=== PATIENT | male | born 1955 | race Caucasian/White ===

== ENCOUNTER 2017-01-10 10:45 | Emergency (ER) | payer OTHER ==
[2017-01-10 10:50] VITALS: BP 139/100; PULSE 72; TEMP 97.9; BMI 29.0
[2017-01-10] MEDS ORDERED: ALBUTEROL SO4 2.5/IPRATROPIUM 0.5 INH SOL 3 ML VIAL.NEB. NEB ONE ×3 (11:10→11:47)
[2017-01-10] MEDS ORDERED: predniSONE 20 MG TABLET (UD) PO ONE (11:34)
--- NOTE | 2017-01-10 11:41 | PDOC ---
History of Present Illness - General Chief Complaint: Cold Symptoms Stated Complaint: COUGH, SOB Time Seen by Provider: 01/10/17 10:57 - History of Present Illness Initial Comments: 01/10/17 11:44 61-year-old male with a past medical history of GERD, chronic sinusitis, environmental ALLERGIES, and reactive airway disease when he gets a URI Patient has had a recent sinusitis, and was on antibiotics for 10 days, which she stopped 2 weeks ago He is again complaining of sinus pain, more on the right than the left, and some green nasal drainage He denies any fever, but admits to some chills He is also had a few days of nonproductive cough and some wheezing, and feeling "tight" He is occasionally short of breath with this He denies any earache He denies any midsternal chest pain He states that when he gets like this she often needs a nebulizer and some prednisone He denies any other complaints at this time, and the remainder of the review of systems is negative Past History - Past Medical History Allergies/Adverse Reactions: Allergies Allergy/AdvReac Type Severity Reaction Status Date / Time Penicillins Allergy Verified 01/10/17 10:46 Home Medications: Ambulatory Orders Omeprazole Magnesium [Prilosec (OTC)] 20 mg PO DAILY 01/22/16 Clindamycin [Cleocin -] 300 mg PO TID #21 capsule 01/10/17 Prednisone [Deltasone -] 20 mg PO DAILY #15 tablet 01/10/17 Other medical history: SINUS - Psycho/Social/Smoking Cessation Hx Anxiety: No Suicidal Ideation: No Smoking History: Former smoker Have you smoked in the past 12 months: No If you are a former smoker, when did you quit?: 15YRS Information on smoking cessation initiated: No Hx Alcohol Use: Yes Drug/Substance Use Hx: No Substance Use Type: Alcohol Review of Systems - Review of Systems Able to Perform ROS?: Yes Comments:: 01/10/17 11:46 Review of systems is as per history of present illness and otherwise negative *Physical Exam - Vital Signs Last Vital Signs Temp Pulse Resp BP Pulse Ox 97.9 F 72 18 139/100 100 01/10/17 10:45 01/10/17 10:45 01/10/17 10:45 01/10/17 10:45 01/10/17 10:45 - Physical Exam Comments: 01/10/17 11:46 Physical exam Last Vital Signs Temp Pulse Resp BP Pulse Ox 97.9 F 72 18 139/100 100 01/10/17 10:45 01/10/17 10:45 01/10/17 10:45 01/10/17 10:45 01/10/17 10:45 GENERAL: The patient is awake, alert, and fully oriented, and in no apparent distress. HEAD: Normal with no signs of trauma. EYES: Sclera anicteric, conjunctiva normal ENT: TMs normal, the throat is erythematous without exudate Moist mucous membranes. There is diffuse mild sinus tenderness to palpation, mostly in the right maxillary sinus NECK: Normal range of motion, supple without lymphadenopathy, JVD, or masses. LUNGS: Breath sounds equal, clear with a prolonged expiratory phase, but no wheezing HEART: Regular rate and rhythm, normal S1 and S2 without murmur, rub or gallop. ABDOMEN: Soft, nontender, normoactive bowel sounds. No guarding, no rebound. No masses appreciated. EXTREMITIES: Normal range of motion, no edema. No clubbing or cyanosis. No cords, erythema, or tenderness. NEUROLOGICAL: Cranial nerves II through XII grossly intact. Normal speech, normal gait. PSYCH: Normal mood, normal affect. SKIN: Warm, Dry, normal turgor, no rashes or lesions noted. Medical Decision Making - Medical Decision Making 01/10/17 11:48 Recurrent sinusitis, URI with reactive airway disease 01/10/17 13:00 Feeling better after prednisone and 2 nebs Lungs clear Patient has an albuterol MDI at home Will use his nebulizer every 4-6 hours, prednisone taper, and clindamycin ( patient is ALLERGIC to penicillin and sulfa) for the sinusitis 01/10/17 13:04 Chest x-ray PA and lateral-NAD *DC/Admit/Observation/Transfer Diagnosis at time of Disposition: Reactive airway disease, Sinusitis, URI (upper respiratory infection) - Discharge Dispostion Disposition: HOME Condition at time of disposition: Improved - Prescriptions Prescriptions: Clindamycin [Cleocin -] 300 mg PO TID #21 capsule Prednisone [Deltasone -] 20 mg PO DAILY #15 tablet - Patient Instructions Additional Instructions: Clindamycin as directed-start today Prednisone taper as directed-start tomorrow, since she received her first dose here Albuterol inhaler-use your inhaler every 4-6 hours for the next few days Followup with your primary care physician in 24-48 hours Return immediately if you worsen in any way Take your medications as directed Take a probiotic or yogurt daily to prevent antibiotic associated diarrhea
[2017-01-10] MEDS ORDERED: predniSONE 20 MG TABLET (UD) ONE (11:46)
== END 2017-01-10 13:06 | disposition home or self-care (01) ==
LOC: FER 10:45
PROC: 3E0F7GC Introduction of Other Therapeutic Substance into Respiratory Tract, Via Natural or Artificial Opening (ICD-10-PCS; principal; 2017-01-10)
DX: J98.9 Respiratory disorder, unspecified (principal); J32.9 Chronic sinusitis, unspecified; J06.9 Acute upper respiratory infection, unspecified
CPT/HCPCS: 71020-TC; 99282-25

== ENCOUNTER 2017-10-24 17:42 | Emergency (ER) | payer OTHER ==
[2017-10-24] MEDS ORDERED: SODIUM CHLORIDE 1,000 ML IV STA (17:59)
[2017-10-24 18:11] VITALS: BP 146/100; PULSE 73; TEMP 98.8; BMI 28.2
--- NOTE | 2017-10-24 18:11 | PDOC ---
History of Present Illness - General History Source: Patient Exam Limitations: No Limitations - History of Present Illness Initial Comments: 10/24/17 18:48 The patient is a 61-year-old male, with a significant past medical history of GERD, who presents with 3 weeks of left lower quadrant pain that has progressively worsened over the last several days. Pt describes the pain as burning in sensation that is associated with urinary frequency and loose stools. He denies any fever or chills. The patient denies any nausea or vomiting. He denies any dysuria or hematuria. <Rody Astorga - Last Filed: 10/24/17 18:58> - General History Source: Patient Exam Limitations: No Limitations <Chas Landeros - Last Filed: 10/25/17 20:23> - General Chief Complaint: Pain Stated Complaint: ABD PAIN LEFT SIDE Time Seen by Provider: 10/24/17 17:43 Past History <Rody Astorga - Last Filed: 10/24/17 18:58> - Suicide/Smoking/Psychosocial Hx Smoking History: Former smoker Have you smoked in the past 12 months: No If you are a former smoker, when did you quit?: 15YRS Hx Alcohol Use: Yes Drug/Substance Use Hx: No Substance Use Type: Alcohol <Chas Landeros - Last Filed: 10/25/17 20:23> - Past Medical History Allergies/Adverse Reactions: Allergies Allergy/AdvReac Type Severity Reaction Status Date / Time Penicillins Allergy Verified 10/24/17 17:43 Sulfa (Sulfonamide Allergy Verified 10/25/17 05:59 Antibiotics) Home Medications: Ambulatory Orders Omeprazole Magnesium [Prilosec (OTC)] 20 mg PO DAILY 01/22/16 Levofloxacin [Levaquin] 750 mg PO DAILY #7 tab 10/24/17 Metronidazole [Flagyl -] 500 mg PO TID #21 tablet 10/24/17 Review of Systems - Review of Systems Able to Perform ROS?: Yes Comments:: 10/24/17 18:49 GENERAL/CONSTITUTIONAL: (+)Loss of appetite. No fever or chills. No weakness. HEAD, EYES, EARS, NOSE AND THROAT: No change in vision. No ear pain or discharge. No sore throat. CARDIOVASCULAR: No chest pain or shortness of breath. RESPIRATORY: No cough, wheezing, or hemoptysis. SKIN: No rash GASTROINTESTINAL: (+)diarrhea, left lower quadrant pain. No nausea, vomiting, or constipation. GENITOURINARY: No dysuria, frequency, or change in urination. MUSCULOSKELETAL: No joint or muscle swelling or pain. No neck or back pain. NEUROLOGIC: No headache, vertigo, loss of consciousness, or change in strength/ sensation. ENDOCRINE: No increased thirst. No abnormal weight change. HEMATOLOGIC/LYMPHATIC: No anemia, easy bleeding, or history of blood clots. ALLERGIC/IMMUNOLOGIC: No hives or skin allergy. <Rody Astorga - Last Filed: 10/24/17 18:58> *Physical Exam - Vital Signs Last Vital Signs Temp Pulse Resp BP Pulse Ox 98.8 F 73 20 146/100 97 10/24/17 17:43 10/24/17 17:43 10/24/17 17:43 10/24/17 17:43 10/24/17 17:43 - Physical Exam Comments: 10/24/17 18:51 GENERAL: Awake, alert, and fully oriented, in no acute distress HEAD: No signs of trauma ENT: Auricles normal inspection, hearing grossly normal, nares patent, oropharynx clear EYES: PERRLA, EOMI, sclera anicteric, conjunctiva clear without exudates. Moist mucosa. NECK: Normal ROM, supple, no lymphadenopathy, JVD, or masses LUNGS: Breath sounds equal, clear to auscultation bilaterally. No wheezes, and no crackles HEART: Regular rate and rhythm, normal S1 and S2, no murmurs, rubs or gallops ABDOMEN: (+)Left lower quadrant tenderness. Soft, normoactive bowel sounds. No guarding, no rebound. No masses EXTREMITIES: Normal range of motion, no edema. No clubbing or cyanosis. No cords, erythema, or tenderness NEUROLOGICAL: Cranial nerves II through XII grossly intact. Normal speech, normal gait SKIN: Warm, Dry, normal turgor, no rashes or lesions noted Testicular Exam: Pt is circumcised. No rashes or lesions are noted. No testicular tenderness. <Rody Astorga - Last Filed: 10/24/17 18:58> ED Treatment Course - LABORATORY CBC & Chemistry Diagram: 10/24/17 18:23 10/24/17 18:23 - ADDITIONAL ORDERS Additional order review: 10/24/17 18:23 RBC 5.01 MCV 86.9 MCHC 34.8 RDW 12.0 MPV 8.1 Neutrophils % 69.4 Lymphocytes % 20.3 Monocytes % 9.2 Eosinophils % 0.7 Basophils % 0.4 <Rody Astorga - Last Filed: 10/24/17 18:58> - LABORATORY CBC & Chemistry Diagram: 10/24/17 18:23 10/24/17 18:23 - RADIOLOGY Radiology Studies Ordered: Category Date Time Status ABDOMEN & PELVIS CT WITH CONTR [CT] Stat CT Scan 10/24/17 17:59 Ordered <Chas Landeros - Last Filed: 10/25/17 20:23> Medical Decision Making - Medical Decision Making 10/24/17 18:02 A portion of this note was documented by scribe services under my direction. I have reviewed the details of the note, within reason, and agree with the documentation with the following case summary and management plan written by me. Patient treated in the ED. Nursing notes are reviewed and incorporated into the medical decision-making. Vital signs reviewed. Peripheral IV access obtained by the nurse, laboratory studies are drawn and sent, reviewed and interpreted by myself. Vital Signs Temp Pulse Resp BP Pulse Ox 98.8 F 73 20 146/100 97 10/24/17 17:43 12 17:43 10/24/17 17:43 10/24/17 17:43 10/24/17 17:43 61-year-old male with past medical history of GERD presents with 3 weeks of left lower quadrant pain that is worsened in the last several days. The course of events was 3 weeks. Reports that this is a burning type pain in left lower quadrant. His associated with urinary frequency and loose stools but denies any nausea, vomiting, dysuria. Denies fevers or chills. Differential includes cystitis, diverticulitis, colitis. We'll obtain labs, urinalysis and a CAT scan the abdomen pelvis and reassess. 10/24/17 18:54 Case signed out to oncoming ED attending Dr. Alanis for further management and disposition. <Chas Landeros - Last Filed: 10/25/17 20:23> *DC/Admit/Observation/Transfer - Attestations Scribe Attestion: 10/24/17 19:03 Documentation prepared by Rody Astorga, acting as medical concierge for Chas Landeros MD. <Rody Astorga - Last Filed: 10/24/17 18:58> <Chas Landeros - Last Filed: 10/25/17 20:23> Diagnosis at time of Disposition: Diverticulitis - Discharge Dispostion Disposition: HOME Condition at time of disposition: Stable - Prescriptions Prescriptions: Levofloxacin [Levaquin] 750 mg PO DAILY #7 tab Metronidazole [Flagyl -] 500 mg PO TID #21 tablet - Patient Instructions Printed Discharge Instructions: Diverticulitis, DI for Diverticulitis Additional Instructions: Light diet Levaquin 750 mg once a day for 1 week Flagyl 500 mg 3 times a day for 1 week Follow-up with your doctor within 5 days Return to ER if you have more severe pain/high fever/vomiting
[2017-10-24 18:39] LABS: BASOPHIL 0.4 % (0-2.0); EOSINOPHIL 0.7 % (0-4.5); MCH 30.2 pg (25.7-33.7); MCHC 34.8 g/dl (32.0-35.9); MEAN CELL VOLUME 86.9 fl (80-96); MEAN PLT VOLUME 8.1 fl (7.5-11.1); NEUTROPHILS 69.4 % (42.8-82.8); PLATELET COUNT 194 K/MM3 (134-434); WHITE BLOOD COUNT 8.7 K/mm3 (4.0-10.8)
[2017-10-24 18:50] LABS: ALBUMIN 3.9 g/dl (3.5-5.0); ALK PHOS 69 U/L (32-92); ANION GAP 10 (8-16); BILIRUBIN,TOTAL 1.2 mg/dl (0.2-1.0); CO2 22 mmol/L (22-28); CREATININE 0.9 mg/dl (0.6-1.3); GLUCOSE,RANDOM 93 mg/dl (74-106); SGOT/AST 22 U/L (10-42); SGPT/ALT 23 U/L (10-40); TOT PROT 6.9 g/dl (6.4-8.3)
[2017-10-24 20:38] LABS: PH,URINE 5.5 (4.5-8); URINE APPEARANCE Clear; URINE BILIRUBIN Negative (NEGATIVE); URINE BLOOD Negative (NEGATIVE); URINE GLUCOSE (UA) Negative (NEGATIVE); URINE KETONE 1+ (NEGATIVE); URINE LEUK ESTERASE Negative (NEGATIVE); URINE NITRITE Negative (NEGATIVE); URINE PROTEIN Negative (NEGATIVE); URINE UROBILINOGEN 0.2 (0.2-1.0)
[2017-10-24 20:42] LABS: URINE COLOR YELLOW
[2017-10-24] MEDS ORDERED: LEVOFLOXACIN 750 MG TABLET PO ONE (22:47)
[2017-10-24] MEDS ORDERED: metroNIDAZOLE 250 MG TABLET PO ONE (22:48)
[2017-10-24] MEDS ORDERED: LEVOFLOXACIN 500 MG TABLET (FP) ONE (22:52)
[2017-10-24] MEDS ORDERED: metroNIDAZOLE 250 MG TABLET ONE (22:52)
[2017-10-24] MEDS ORDERED: LEVOFLOXACIN 250 MG TABLET (FP) ONE (22:52)
--- NOTE | 2017-10-24 22:52 | PDOC ---
*Physical Exam - Vital Signs Last Vital Signs Temp Pulse Resp BP Pulse Ox 98.8 F 73 20 146/100 97 10/24/17 17:43 10/24/17 17:43 10/24/17 17:43 10/24/17 17:43 10/24/17 17:43 ED Treatment Course - LABORATORY CBC & Chemistry Diagram: 10/24/17 18:23 10/24/17 18:23 - ADDITIONAL ORDERS Additional order review: Laboratory Results 10/24/17 10/24/17 20:15 18:23 Sodium 133 L Potassium 3.7 Chloride 101 Carbon Dioxide 22 Anion Gap 10 BUN 15 Creatinine 0.9 Creat Clearance w eGFR > 60 Random Glucose 93 Calcium 9.0 Total Bilirubin 1.2 H AST 22 ALT 23 Alkaline Phosphatase 69 Total Protein 6.9 Albumin 3.9 Lipase 27 Urine Color Yellow Urine Appearance Clear Urine pH 5.5 Ur Specific [place] 1.020 Urine Protein Negative Urine Glucose (UA) Negative Urine Ketones 1+ H Urine Blood Negative Urine Nitrite Negative Urine Bilirubin Negative Urine Urobilinogen 0.2 Ur Leukocyte Esterase Negative 10/24/17 18:23 RBC 5.01 MCV 86.9 MCHC 34.8 RDW 12.0 MPV 8.1 Neutrophils % 69.4 Lymphocytes % 20.3 Monocytes % 9.2 Eosinophils % 0.7 Basophils % 0.4 - Medications Given in the ED: ED Medications Discontinued Medications Generic Name Dose Route Start Last Admin Trade Name Freq PRN Reason Stop Dose Admin Sodium Chloride 1,000 mls @ 1,000 mls/hr 10/24/17 17:59 10/24/17 18:24 Normal Saline - IV 10/24/17 18:58 1,000 mls/hr ASDIR STA Administration Progress Note - Progress Note Progress Note: Care of this patient received from Dr. Landeros. Abdominal/pelvic CT positive for uncomplicated acute diverticulitis of the descending colon. No evidence of abscess/perforation or other complications. Results discussed with the patient. He is comfortable and not nauseated. He can be treated as an outpatient. He has ALLERGIES to penicillin and sulfa drugs. He will be given levofloxacin 750 mg daily as well as Flagyl 500 mg 3 times a day. First doses will be given here in the emergency room and course of 1 week sent to his pharmacy. He will follow-up with his doctor in [place] within the next 5-7 days. He should return to the ER if he has worsening pain or experiences high fever/ vomiting *DC/Admit/Observation/Transfer Diagnosis at time of Disposition: Diverticulitis - Discharge Dispostion Disposition: HOME Condition at time of disposition: Stable - Prescriptions Prescriptions: Levofloxacin [Levaquin] 750 mg PO DAILY #7 tab Metronidazole [Flagyl -] 500 mg PO TID #21 tablet - Referrals - Patient Instructions Printed Discharge Instructions: Diverticulitis, DI for Diverticulitis Additional Instructions: Light diet Levaquin 750 mg once a day for 1 week Flagyl 500 mg 3 times a day for 1 week Follow-up with your doctor within 5 days Return to ER if you have more severe pain/high fever/vomiting - Post Discharge Activity
== END 2017-10-24 22:58 | disposition home or self-care (01) ==
LOC: FER 17:42
PROC: 3E0337Z Introduction of Electrolytic and Water Balance Substance into Peripheral Vein, Percutaneous Approach (ICD-10-PCS; principal; 2017-10-24)
DX: K57.92 Diverticulitis of intestine, part unspecified, without perforation or abscess without bleeding (principal)
CPT/HCPCS: 36415; 74177-TC; 80053; 81003; 83690; 85025; 87086; 99282-25

== ENCOUNTER 2018-09-19 09:43 | Emergency (ER) | payer OTHER ==
--- NOTE | 2018-09-19 10:04 | PDOC ---
History of Present Illness - General Chief Complaint: Respiratory Stated Complaint: SHORTNESS BREATH COUGH Time Seen by Provider: 09/19/18 09:51 History Source: Patient Exam Limitations: No Limitations - History of Present Illness Initial Comments: 09/19/18 10:06 62 year old with a history of chronic sinusitis, 2 prior PNAs and prev smoker who presents with 1 week of worsening shortness of breath, L nares mild nosebleed and coughing up yellow and green phlegm. The patient notes that he has been doing heavy lifting at work and lifted approximately 300 pounds yesterday. He states that he feels that he is unable to get a full breath on the L side. At time of shortness of breath, patient notes some diaphoresis but denies any nausea or chest pain. He denies any fevers. He admits to some L sided headache, but denies chest pain, abdominal pain, dysuria, hematuria, nausea, vomiting, diarrhea or constipation. He denies any other complaints at bedside. Past History - Past Medical History Allergies/Adverse Reactions: Allergies Allergy/AdvReac Type Severity Reaction Status Date / Time Sulfa (Sulfonamide Allergy Severe Verified 09/19/18 09:46 Antibiotics) Penicillins Allergy Mild Swelling Verified 09/19/18 09:45 Home Medications: Ambulatory Orders Omeprazole Magnesium [Prilosec (OTC)] 20 mg PO DAILY 01/22/16 Fluticasone Prop 0.05% Nasal [Flonase -] 1 spray NS BID #1 bot 09/19/18 levoFLOXacin [Levaquin] 750 mg PO DAILY #4 tab 09/19/18 COPD: No - Suicide/Smoking/Psychosocial Hx Smoking History: Former smoker Have you smoked in the past 12 months: No If you are a former smoker, when did you quit?: 15YRS Hx Alcohol Use: Yes Drug/Substance Use Hx: No Substance Use Type: Alcohol Review of Systems - Review of Systems Able to Perform ROS?: Yes Is the patient limited Slovenian proficient: No Constitutional: Yes: Diaphoresis. No: Chills, Fever *Physical Exam - Physical Exam Comments: 09/19/18 10:14 GENERAL: Awake, alert, and fully oriented, in no acute distress HEAD: No signs of trauma, normocephalic, atraumatic EYES:EOMI, sclera anicteric, conjunctiva clear ENT: hearing grossly normal, nares patent, oropharynx clear without exudates. Moist mucosa NECK: Normal ROM, supple LUNGS: No distress, speaks full sentences, clear to auscultation bilaterally HEART: Regular rate and rhythm, normal S1 and S2, no murmurs, rubs or gallops, peripheral pulses normal and equal bilaterally. ABDOMEN: Soft, nontender, normoactive bowel sounds. No guarding, no rebound. No masses EXTREMITIES : Normal inspection, Normal range of motion, no edema. No clubbing or cyanosis. NEUROLOGICAL: Cranial nerves II through XII grossly intact. Normal speech, normal gait, no focal sensorimotor deficits SKIN: Warm, Dry, normal turgor, no rashes or lesions noted ED Treatment Course - LABORATORY CBC & Chemistry Diagram: 09/19/18 10:15 09/19/18 10:15 - RADIOLOGY Radiology Studies Ordered: Category Date Time Status CHEST X-RAY PORTABLE* [RAD] Stat Radiology 09/19/18 09:55 Ordered Medical Decision Making - Medical Decision Making 09/19/18 10:13 62 year old with a history of chronic sinusitis, 2 prior PNAs and prev smoker who presents with 1 week of worsening shortness of breath, L nares mild nosebleed and coughing up yellow and green phlegm. The patient notes that he has been doing heavy lifting at work and lifted approximately 300 pounds yesterday. He states that he feels that he is unable to get a full breath on the L side. He denies any fevers. He admits to some L sided headache, but denies chest pain, abdominal pain, dysuria, hematuria, nausea, vomiting, diarrhea or constipation. He denies any other complaints at bedside. DDX including but not limited to: ACS vs PNA vs bronchitis W/U: - cbc, cmp, trop - CXR - EKG TX: - Tylenol ED Course: Patient stable, resting comfortably. Duoneb given for shortness of breath. 09/19/18 11:09 CBC: unremarkable CXR: possible R patchiness/consolidation appearing adjacent to cardiac border, midline airway, appropriate vascular markings, no blunting of costophrenic angle , no cardiomegaly, as read by this information writer and attending. Levaquin 750mg PO given Patient states he has an ENT doctors and will get a referral to a pulmonogist through his PCP. Patient stable for discharge. Informed of all lab and imaging results. Given follow up instructions and strict return precautions. Patient expressed understanding and agree to plan. 09/19/18 11:56 Dr. Gtz, PCP contacted about patient ED visit. *DC/Admit/Observation/Transfer Diagnosis at time of Disposition: Atypical pneumonia, Sinusitis - Discharge Dispostion Disposition: HOME Condition at time of disposition: Stable Decision to Admit order: No - Prescriptions Prescriptions: Fluticasone Prop 0.05% Nasal [Flonase -] 1 spray NS BID #1 bot levoFLOXacin [Levaquin] 750 mg PO DAILY #4 tab - Referrals Referrals: [facility] [Provider Group] - Patient Instructions Printed Discharge Instructions: DI for Sinusitis, DI for Atypical Pneumonia Additional Instructions: You were seen in the ED for complaints of shortness of breath and cough In the ED you were evaluated with labwork and imaging. Your results were unremarkable and you showed symptomatic improvement. There does not appear to be an acute need for immediate hospitalization. You are advised to follow up with your Primary Care Physician, Dr. Gtz within 1 week. You note you are followed by ENT and will see them this week. You also expressed desire for Pulmonogy referral but preferred to go through your Primary Care Physician to ensure proper insurance coverage. You were given a prescription for Levaquin 750mg one tablet daily for 5days and Flonase, one spray in the nares daily, please use all medications as directed. You should stop using phenylephrine nasal spray. Return to the ED immediately if you experience worsening shortness of breath, chest pain, fevers, abdominal pain, nausea, sweating or muscle weakness. - Post Discharge Activity Forms/Work/School Notes: Back to Work
[2018-09-19 10:05] VITALS: TEMP 98.2; BMI 29.8
[2018-09-19] MEDS ORDERED: ACETAMINOPHEN 325 MG TABLET (FP) PO ONE (10:05)
[2018-09-19] MEDS ORDERED: ACETAMINOPHEN 325 MG TABLET (FP) ONE (10:10)
[2018-09-19] MEDS ORDERED: ALBUTEROL SO4 2.5/IPRATROPIUM 0.5 INH SOL 3 ML VIAL.NEB. NEB ONE ×2 (10:26→10:29)
--- NOTE | 2018-09-19 10:41 | PDOC ---
Attending Attestation - Resident Resident Name: Geovanna Frey - ED Attending Attestation I have performed the following: I have examined & evaluated the patient, The case was reviewed & discussed with the resident, I agree w/resident's findings & plan, Exceptions are as noted - HPI HPI: 09/19/18 10:38 62 yo M h/o prior smoking quit 10 yrs ago, here today c/o cough, congestion, productive of sputum. and today feels sob. feels lung wont aerate well on left side. denies cp. denies pain with movement. did get diaphoretic today while feeling sob. has had cardiac workup with stress test in the past one yr ago which is normal reportedly. no leg swelling. no recent travel. no h/o pe or dvt. has had two pna in the past. - Physicial Exam PE: 09/19/18 10:39 awake alert lungs with crackles at left base. faint rhonchi at right base. normal effort. aerating well. heart rrr no mrg. abd soft nt nd. ext wwp no edema. no calf tenderness. 2 + dp/ pt pulses bilaterally - Medical Decision Making 09/19/18 10:40 differential bronchitis, pna, atypical cardiac , plan labs ekg cxr trop . will give duoneb to loosen phlegm. consider abx for bronchitis due to colored sputum , h/o prior tobacco use.
[2018-09-19 10:49] LABS: BASO % 0.6 % (0-2.0); EOS % 1.9 % (0-4.5); HEMATOCRIT 45.9 % (35.4-49); HEMOGLOBIN 15.6 GM/dl (11.7-16.9); LYMPH % 23.4 % (8-40); MCH 31.3 pg (25.7-33.7); MEAN PLT VOLUME 7.7 fl (7.5-11.1); MONO % 9.9 % (3.8-10.2); NEUT % 64.2 % (42.8-82.8); PLATELET COUNT 219 K/MM3 (134-434); RBC 4.99 M/mm3 (4.00-5.60); RDW 12.2 % (11.9-15.9); WHITE BLOOD COUNT 5.3 K/mm3 (4.0-10.8)
[2018-09-19 10:57] VITALS: BP 133/92; PULSE 76
[2018-09-19 11:28] LABS: ALK PHOS 76 U/L (32-92); ANION GAP 7 MMOL/L (8-16); BILIRUBIN,TOTAL 0.6 mg/dl (0.2-1.0); BLOOD UREA NITROGEN 17 mg/dl (7-18); CALCIUM 8.9 mg/dl (8.4-10.2); CHLORIDE 109 mmol/L (98-107); CO2 22 mmol/L (22-28); CREATININE 0.8 mg/dl (0.6-1.3); GLUCOSE,RANDOM 109 mg/dl (74-106); POTASSIUM 4.1 mmol/L (3.5-5.1); SGOT/AST 24 U/L (10-42); SGPT/ALT 24 U/L (10-40); SODIUM 138 mmol/L (136-145); TOT PROT 6.7 g/dl (6.4-8.3)
--- NOTE | 2018-09-20 12:23 | EKG ---
Test Reason : Blood Pressure : / mmHG Vent. Rate : 054 BPM Atrial Rate : 054 BPM P-R Int : 182 ms QRS Dur : 086 ms QT Int : 416 ms P-R-T Axes : 059 -27 -13 degrees QTc Int : 394 ms SINUS BRADYCARDIA MINIMAL VOLTAGE CRITERIA FOR LVH, MAY BE NORMAL VARIANT NONSPECIFIC T WAVE ABNORMALITY NO PREVIOUS ECGS AVAILABLE Confirmed by FARA STINSON MD ([id number]) on 09/20/2018 12:22:58 PM Referred By: KADIE Confirmed By:FARA STINSON MD
== END 2018-09-19 12:02 | disposition home or self-care (01) ==
LOC: FER 09:43
PROC: 3E0F7GC Introduction of Other Therapeutic Substance into Respiratory Tract, Via Natural or Artificial Opening (ICD-10-PCS; principal; 2018-09-19)
DX: J18.8 Other pneumonia, unspecified organism (principal); J32.9 Chronic sinusitis, unspecified; Z87.891 Personal history of nicotine dependence
CPT/HCPCS: 36415; 71045-TC-FY; 80053; 84484; 85025; 93005; 99282-25

== ENCOUNTER 2019-11-17 13:41 | Emergency (ER) | payer OTHER ==
[2019-11-17 13:55] VITALS: TEMP 98.7; BMI 30.7
--- NOTE | 2019-11-17 15:39 | PDOC ---
History of Present Illness - General Chief Complaint: Respiratory Stated Complaint: FACIAL PAIN SORE THROAt drycough chest sore Time Seen by Provider: 11/17/19 13:55 - History of Present Illness Initial Comments: 11/17/19 17:25 Chief complaint: Sinus congestion and facial pain HPI: Chronic sinusitis, recent course of antibiotics unsuccessful at relieving symptoms. Also no relief with antihistamines, decongestants, and nasal steroids. Still has severe pressure in both frontal sinuses. Also has developed a nonproductive cough and wheezing. Review of systems: No fever/chills, body aches, myalgias, fatigue, malaise, chest pain, shortness of breath, abdominal pain, nausea, vomiting, diarrhea. Remaining systems reviewed and negative Past medical history: Chronic sinusitis, nasal polyps, multiple allergies to skin testing. Social/family history reviewed. Former smoker, no tobacco alcohol or drugs for years. Suspects that his home may have dust or molds precipitating his symptoms Physical exam: Alert and oriented well-developed well-nourished no acute distress cheerful and cooperative Afebrile, vital signs normal except for mildly elevated blood pressure. This did not resolve and it was recommended that he see his primary physician within 2 days for recheck and possible therapy ENT: Significant nasal congestion, mucous membrane swelling, but no discharge. Ears and throat clear Neck supple without bruit mass or nodes Lungs with bilateral end expiratory wheezing, at both bases, mild no rales or rhonchi. No tachypnea or dyspnea Oxygen saturation is good CV regular without murmur rub or gallop Abdomen benign Skin clear, no rash, adequate turgor and wet mucous membranes Impression acute sinusitis, superimposed on chronic sinusitis, allergic disease and nasal polyps. Chest x-ray is clear. No pneumonia. Plan: Repeat course of antibiotics for sinusitis. Singulair. Continue nasal steroids, antihistamines, and decongestants. See ENT physician soon as possible for further evaluation and treatment. Fully ambulatory and in no significant pain or other distress at discharge to follow-up as directed Past History - Past Medical History Allergies/Adverse Reactions: Allergies Allergy/AdvReac Type Severity Reaction Status Date / Time Sulfa (Sulfonamide Allergy Severe Verified 11/17/19 13:43 Antibiotics) Penicillins Allergy Mild Swelling Verified 11/17/19 13:43 Home Medications: Ambulatory Orders Cefuroxime Axetil [Ceftin -] 500 mg PO Q12H #20 tablet 11/17/19 Montelukast Sodium [Singulair] 10 mg PO DAILY #15 tablet 11/17/19 Oxycodone HCl/Acetaminophen [Percocet 5-325 mg Tablet] 1 tab PO PRN 11/17/19 COPD: No Other medical history: arthritis - Psycho Social/Smoking Cessation Hx Smoking History: Former smoker Have you smoked in the past 12 months: No If you are a former smoker, when did you quit?: 20 years Information on smoking cessation initiated: No Hx Alcohol Use: Yes (2 glasses wine 5 days/week) Drug/Substance Use Hx: No Substance Use Type: Alcohol *Physical Exam - Vital Signs Last Vital Signs Temp Pulse Resp BP Pulse Ox 98.7 F 103 H 20 145/106 H 96 11/17/19 13:43 11/17/19 13:43 11/17/19 13:43 11/17/19 13:43 11/17/19 13:43 Discharge - Discharge Information Problems reviewed: Yes Clinical Impression/Diagnosis: Otalgia Sinusitis Qualifiers: Sinusitis location: frontal Chronicity: chronic Qualified Code(s): J32.1 - Chronic frontal sinusitis Condition: Stable Disposition: HOME - Admission No - Additional Discharge Information Prescriptions: Cefuroxime Axetil [Ceftin -] 500 mg PO Q12H #20 tablet Montelukast Sodium [Singulair] 10 mg PO DAILY #15 tablet - Follow up/Referral - Patient Discharge Instructions Patient Printed Discharge Instructions: DI for Sinusitis, DI for Eustachian Tube Dysfunction-Adult Additional Instructions: Continue usual allergy medication. Begin Singulair. Antibiotic. See ENT specialist for follow-up within the next week. - Post Discharge Activity
[2019-11-17 16:15] VITALS: BP 165/109; PULSE 70
== END 2019-11-17 16:18 | disposition home or self-care (01) ==
LOC: FER 13:41
DX: J32.1 Chronic frontal sinusitis (principal); H92.09 Otalgia, unspecified ear; Z88.2 Allergy status to sulfonamides; Z88.0 Allergy status to penicillin
CPT/HCPCS: 71046-TC-FY; 99282-25

== ENCOUNTER 2020-08-11 14:00 | Emergency (ER) | payer OTHER ==
--- NOTE | 2020-08-11 14:02 | PDOC ---
History of Present Illness - General Chief Complaint: Pain, Acute Stated Complaint: LEFT BACK/ABD PAIN Time Seen by Provider: 08/11/20 14:02 - History of Present Illness Initial Comments: HPI: 64yo M with PMH of diverticulitis, chronic hip/knee pain presenting with left lower quadrant abdominal pain x 4 days. Patient states this pain is similar to his diverticulitis pain but it is different in that it radiates around to his le ft flank. No nausea or vomiting. Patient has had a normal diet. No changes in stools; last bowel movement was today and was a normal formed brown stool without blood. Has had a colonoscopy in the past showing polyps and believes he is overdue for another colonoscopy. Denies history of abdominal surgeries. Takes percocet on a daily basis for chronic hip/knee pain. Endorses a strong family history of prostate CA. No urinary symptoms. Denies fever, chills, chest pain, or shortness of breath. PCP: a provider in [place] ROS: Constitutional: no fever, no chills HEENT: no throat pain, no dysphagia Cardiovascular: no chest pain, no palpitations Respiratory: no cough, no shortness of breath Gastrointestinal: +abdominal pain, no nausea Genitourinary: no dysuria, no hematuria Musculoskeletal: no myalgia, no arthralgia Skin: no rash, no itching Neurologic: no headache, no weakness Psych: no agitation, no anxiety PE: General: Awake, alert, and fully oriented, in no acute distress Head: No signs of trauma Eyes: EOMI, sclera anicteric ENT: Moist mucus membranes Neck: Normal ROM, supple Lungs: Lungs clear, Normal breath sounds Cardio: Regular rhythm, S1 and S2 present Abdomen: Tender to palpation in left lower quadrant. Soft. No guarding, no rebound, no masses. No CVA tenderness Extremities: Normal range of motion, Distal pulses present Skin: Warm, Dry, normal turgor Neurologic: Cranial nerves II through XII grossly intact. Normal speech ED Course/MDM: DDX including but not limited to diverticulitis, constipation, nephrolithiasis, UTI/pyelonephritis, MSK Given patient's history and physicial, I have a strong suspicion for diverticulitis. Lower suspicion for urinary pathology, but still on the differential as patient reports pain in his left flank Labs CTAP Patient declined pain medication as he lives three hours away and is driving himself; can stay with his mother in [place] if he needs too 08/11/20 14:02 CBC WBC 6.3 K/mm3 (4.0-10.8) 08/11/20 14:38 RBC 5.21 M/mm3 (4.00-5.60) 08/11/20 14:38 Hgb 16.6 GM/dl (11.7-16.9) 08/11/20 14:38 Hct 48.4 % (35.4-49) 08/11/20 14:38 MCV 92.9 fl (80-96) 08/11/20 14:38 MCH 31.9 pg (25.7-33.7) 08/11/20 14:38 MCHC 34.4 g/dl (32.0-35.9) 08/11/20 14:38 RDW 12.2 % (11.9-15.9) 08/11/20 14:38 Plt Count 239 K/MM3 (134-434) 08/11/20 14:38 MPV 7.1 fl (7.5-11.1) L 08/11/20 14:38 Absolute Neuts (auto) 4.1 K/mm3 08/11/20 14:38 Neutrophils % 66.9 % (42.8-82.8) 08/11/20 14:38 Lymphocytes % 23.6 % (8-40) 08/11/20 14:38 Monocytes % 7.4 % (3.8-10.2) 08/11/20 14:38 Eosinophils % 1.3 % (0-4.5) 08/11/20 14:38 Basophils % 0.8 % (0-2.0) 08/11/20 14:38 No leuckoytosis or anemia CMP Sodium 137 mmol/L (136-145) 08/11/20 14:38 Potassium 4.1 mmol/L (3.5-5.1) 08/11/20 14:38 Chloride 107 mmol/L (98-107) 08/11/20 14:38 Carbon Dioxide 22 mmol/L (21-32) 08/11/20 14:38 Anion Gap 8 MMOL/L (8-16) 08/11/20 14:38 BUN 20.0 mg/dl (7-18) H 08/11/20 14:38 Creatinine 0.8 mg/dl (0.55-1.3) 08/11/20 14:38 Est GFR (CKD-EPI)AfAm 110.96 08/11/20 14:38 Est GFR (CKD-EPI)NonAf 95.74 08/11/20 14:38 Random Glucose 115 mg/dl (74-106) H 08/11/20 14:38 Calcium 9.3 mg/dl (8.5-10) 08/11/20 14:38 Total Bilirubin 0.9 mg/dl (0.2-1) 08/11/20 14:38 AST 29 U/L (15-37) 08/11/20 14:38 ALT 33 U/L (13-61) 08/11/20 14:38 Alkaline Phosphatase 74 U/L (45-117) 08/11/20 14:38 Total Protein 7.0 g/dl (6.4-8.2) 08/11/20 14:38 Albumin 4.1 g/dl (3.4-5.0) 08/11/20 14:38 Electrolytes unremarkable Normal Cr No transaminitis Laboratory Tests 08/11/20 14:12 Urine Color Yellow Urine Appearance Clear Urine pH 5.5 Urine Protein Negative Urine Glucose (UA) Negative Urine Ketones Negative Urine Blood Trace-intact Urine Nitrite Negative Urine Bilirubin Negative Urine Urobilinogen 0.2 Ur Leukocyte Esterase Negative UA without infection, trace blood CTAP as reported by radiology: "Abdomen and pelvis CT with contrast Clinical information: LLQ pain radiating to left flank, h/o diverticulitis Multiplanar imaging was performed following the intravenous administration of nonionic contrast. Enteric contrast was not administered. No evidence of pneumoperito neum, free intraperitoneal fluid, abscess or bowel obstruction. Extensive diverticulosis is seen along the descending and sigmoid colon. A subtle 1.4 x 1 cm per icolonic focus of increased attenuation is noted along the ventral border of the left colon at the a pproximate junction of the descending and sigmoid segments (transaxial image 84). This pericolonic f ocus could represent evidence of very mild/early acute diverticulitis versus representing minimal fo bryce scarring as a result of acute diverticulitis identified on a prior CT study of 10/24/2017. The remainder of the exam demonstrates no definite interval change. No gross small bowel abnormality is identified allowing for lack of intraluminal contrast. The liver, spleen, pancreas, gallbladder, adrenal glands and kidneys demonstrate no discrete pathology. There is no aortic aneurysm. No definite lymphadenopathy is noted on the basis of CT size criteria. Mild to moderate prostate enlargement. Small umbilical hernia containing fat only. The visualized osseous structures demonstrate no obvious acute abnormality. Impression: Extensive left-sided colonic diverticulosis is noted. A subtle 1.4 x 1 cm pericolonic focus of increased density is seen along the ventral border of the left colon at the junction of the descending and sigmoid segments which could be on the basis of very mild or early acute uncomplicated diverticulitis versus representing minimal focal scarring as a result of a prior episode of acute diverticulitis identified on CT performed 10/24/2017. Correlate clinically. Close follow-up CT may be performed. The remainder of the exam appears unchanged. Small umbilical hernia containing fat only. Reported By: Colten Michael MD 08/11/20 1720 " Clinically correlating, this is likely early diverticulitis Only the second episode patient has ever had, does not yet need a surgical consult My suspicion is that the patient's back pain is musculoskeletal of nature as there are no kidney stones seen on CT Ciprofloxacin and Flagyl to be started here Prescription sent to pharmacy Patient instructed to address hypertension with his doctor To follow up with PCP and GI specialists Return precautions Stable for discharge 08/11/20 17:42 Past History - Medical History Allergies/Adverse Reactions: Allergies Allergy/AdvReac Type Severity Reaction Status Date / Time Sulfa (Sulfonamide Allergy Severe Verified 08/11/20 14:01 Antibiotics) Penicillins Allergy Mild Swelling Verified 08/11/20 14:01 Home Medications: Ambulatory Orders Oxycodone HCl/Acetaminophen [Percocet 5-325 mg Tablet] 1 tab PO PRN 11/17/19 Ciprofloxacin [Cipro -] 500 mg PO Q12H #20 tablet 08/11/20 metroNIDAZOLE [Flagyl -] 500 mg PO Q8H #30 tablet 08/11/20 COPD: No - Psycho-Social/Smoking History Smoking History: Former smoker Have you smoked in the past 12 months: No If you are a former smoker, when did you quit?: 20 years ED Treatment Course - LABORATORY CBC & Chemistry Diagram: 08/11/20 14:38 08/11/20 14:38 Discharge - Discharge Information Problems reviewed: Yes Clinical Impression/Diagnosis: Left lower quadrant pain, Diverticulitis Condition: Stable Disposition: HOME - Additional Discharge Information Prescriptions: Ciprofloxacin [Cipro -] 500 mg PO Q12H #20 tablet metroNIDAZOLE [Flagyl -] 500 mg PO Q8H #30 tablet - Follow up/Referral - Patient Discharge Instructions Additional Instructions: You came to the emergency department for abdominal pain. Labs were unremarkable. CT imaging showed findings consistent with a very mild or early diverticulitis. You were given antibiotics while you were in the department. Antibiotics prescription sent to your pharmacy.Take as instructed. Follow-up with your primary care provider within 72 hours to discuss this ED visit and to further evaluate your symptoms. Call today or tomorrow morning and make an appointment. Your workup is not complete until you do so. Your blood pressure was high while you were here. Follow up with your primary care doctor regarding this as well. Immediate medical attention is required if you develop: high fevers, severe pain, constipation, intractable vomiting, are unable to take your antibiotics, or develop any new or concerning symptoms. If you think you are having an emergency, call for emergency medical services or present to the emergency department right away. - Post Discharge Activity
--- NOTE | 2020-08-11 14:16 | PDOC ---
Attending Attestation - Resident Resident Name: Radha Ayon - ED Attending Attestation I have performed the following: I have examined & evaluated the patient, The case was reviewed & discussed with the resident, I agree w/resident's findings & plan - HPI HPI: 08/11/20 14:16 64 year old with a history of chronic sinusitis, 2 prior PNAs and prev smoker, GERD, diverticulitis presenting with LLQ pain/back pain x 4 days. no trauma, but has been riding his bicycle x 3 weeks and exerting himself. no falls no n/v/d, constipation. no f/c. no cough or congestion, SOB or cp. he has been taking home percocets prn for the pain with relief. 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 08/11/20 14:35 08/11/20 16:40 - Physicial Exam PE: 08/11/20 14:47 Agree with the resident's HPI and PE as documented in the electronic medical record. NAD, well appearing, EOMI, PERRL, nl conjunctiva, anicteric; neck supple. lungs clear, RRR, abdomen soft +mild LLQ tenderness, soft umbilical hernia reducible.. no rebound, guarding. Back left paraspinal lumbar point tenderness. PULLIAM x4, no focal neuro deficits. No peripheral edema. normal color for ethnicity, P. 08/11/20 16:44 08/11/20 17:24 - Medical Decision Making 08/11/20 14:35 Vital Signs Temp Pulse Resp BP Pulse Ox 98.9 F 89 19 162/110 H 99 08/11/20 14:00 08/11/20 14:00 08/11/20 14:00 08/11/20 14:00 08/11/20 14:00 vitals reviewed, +hypertensive. otherwise, NAD, afebrile, normal VS pt has h/o HTN, not managed yet. needs clinical recheck labs and lytes wnl UA neg for infection, trace blood, otherwise unremarkable. CT a/p to eval for intra abdominal process/diverticulitis. given similar sx to previous declines analgesia here 08/11/20 17:27 CT with extensive diverticulosis, ?acute diverticulitis in the sigmoid colon with small focus, of scarring vs acute diverticulitis given his LLQ pain will treat with abx, ciprofloxacin and flagyl abx. lido patch for back bland diet, adv as tolerated DC stable condition, return precautions, pt made aware of impression and plan, agreeable Discharge - Discharge Information Problems reviewed: Yes Clinical Impression/Diagnosis: Left lower quadrant pain, Diverticulitis Condition: Stable Disposition: HOME - Admission No - Additional Discharge Information Prescriptions: Ciprofloxacin [Cipro -] 500 mg PO Q12H #20 tablet metroNIDAZOLE [Flagyl -] 500 mg PO Q8H #30 tablet - Follow up/Referral - Patient Discharge Instructions Patient Printed Discharge Instructions: DI for Diverticulitis, DI for Low Back Pain Additional Instructions: You came to the emergency department for abdominal pain. Labs were unremarkable. CT imaging showed findings consistent with a very mild or early diverticulitis. You were given antibiotics while you were in the department. Antibiotics prescription sent to your pharmacy.Take as instructed. Follow-up with your primary care provider within 72 hours to discuss this ED visit and to further evaluate your symptoms. Call today or tomorrow morning and make an appointment. Your workup is not complete until you do so. Your blood pressure was high while you were here. Follow up with your primary care doctor regarding this as well. Immediate medical attention is required if you develop: high fevers, severe pain, constipation, intractable vomiting, are unable to take your antibiotics, or develop any new or concerning symptoms. If you think you are having an emergency, call for emergency medical services or present to the emergency department right away. - Post Discharge Activity
[2020-08-11 14:30] VITALS: TEMP 98.9; BMI 29.8
[2020-08-11 14:55] LABS: BASO % 0.8 % (0-2.0); EOS % 1.3 % (0-4.5); HEMATOCRIT 48.4 % (35.4-49); HEMOGLOBIN 16.6 GM/dl (11.7-16.9); LYMPH % 23.6 % (8-40); MCH 31.9 pg (25.7-33.7); MCHC 34.4 g/dl (32.0-35.9); MEAN CELL VOLUME 92.9 fl (80-96); MEAN PLT VOLUME 7.1 fl (7.5-11.1); MONO % 7.4 % (3.8-10.2); NEUT % 66.9 % (42.8-82.8); PLATELET COUNT 239 K/MM3 (134-434); RBC 5.21 M/mm3 (4.00-5.60); RDW 12.2 % (11.9-15.9); WHITE BLOOD COUNT 6.3 K/mm3 (4.0-10.8)
[2020-08-11 15:17] VITALS: BP 168/110; PULSE 70
[2020-08-11 15:18] LABS: ALBUMIN 4.1 g/dl (3.4-5.0); BILIRUBIN,TOTAL 0.9 mg/dl (0.2-1); CALCIUM 9.3 mg/dl (8.5-10); CREATININE 0.8 mg/dl (0.55-1.3); POTASSIUM 4.1 mmol/L (3.5-5.1)
[2020-08-11] MEDS ORDERED: CIPROFLOXACIN 500 MG TABLET (RESTRICTED TO ID) PO ONE (17:31)
[2020-08-11] MEDS ORDERED: metroNIDAZOLE 250 MG TABLET PO ONE (17:31)
[2020-08-11] MEDS ORDERED: CIPROFLOXACIN 250 MG TABLET (RESTRICTED TO ID) PO ONE (17:39)
[2020-08-11] MEDS ORDERED: metroNIDAZOLE 250 MG TABLET ONE (17:39)
== END 2020-08-11 17:48 | disposition home or self-care (01) ==
LOC: FER 14:00
DX: R10.32 Left lower quadrant pain (principal); K57.92 Diverticulitis of intestine, part unspecified, without perforation or abscess without bleeding
CPT/HCPCS: 36415; 74177-TC; 80053; 81003; 81015; 85025; 87086; 99285-25; Q9967

== ENCOUNTER 2022-07-26 14:13 | Emergency (ER) | payer OTHER ==
[2022-07-26 14:37] VITALS: RESP 18; TEMP 98.8; BMI 29.0
[2022-07-26] MEDS ORDERED: ACETAMINOPHEN 1000 MG/100 ML BAG IVPB ONE (15:16)
[2022-07-26] MEDS ORDERED: ACETAMINOPHEN INJECTION 100 ML IVPB ONE (15:36)
[2022-07-26] MEDS ORDERED: diazePAM 2 MG TABLET PO ONE (15:41)
[2022-07-26] MEDS ORDERED: diazePAM 2 MG TABLET ONE (15:42)
[2022-07-26 16:37] LABS: HEMOGLOBIN 15.5 G/dL (11.7-16.9); MCH 33.4 pg (25.7-33.7); MCHC 36.9 g/dl (32.0-35.9); MEAN CELL VOLUME 90.4 fl (80-96); MEAN PLT VOLUME 7.6 fl (7.5-11.1); PLATELET COUNT 200.5 10^3/uL (134-434); RBC 4.65 10^6/uL (4.00-5.60); RDW 13.2 % (11.9-15.9); WHITE BLOOD COUNT 6.2 10^3/uL (4.0-10.8)
[2022-07-26 16:50] LABS: ALBUMIN 3.9 g/dl (3.4-5.0); BILIRUBIN,TOTAL 0.8 mg/dl (0.2-1); CALCIUM 9.3 mg/dl (8.5-10); CREATININE 0.9 mg/dl (0.55-1.3); TOT PROT 6.7 g/dl (6.4-8.2)
[2022-07-26 17:13] LABS: PLATELET ESTIMATE ADEQUATE
[2022-07-26 20:45] VITALS: BP 144/89; PULSE 79
== END 2022-07-26 22:42 | disposition home or self-care (01) ==
LOC: FER 14:13
PROC: 3E0333Z Introduction of Anti-inflammatory into Peripheral Vein, Percutaneous Approach (ICD-10-PCS; principal; 2022-07-26)
DX: N30.90 Cystitis, unspecified without hematuria (principal)
CPT/HCPCS: 36415; 74177-TC; 80053; 81003; 81015; 85027; 87086; 99285-25; Q9967